=== PATIENT | female | born 1950 | race Caucasian/White ===

== ENCOUNTER 2025-05-23 12:43 | Outpatient (CLI) | payer MEDICARE ==
[~2025-05-23] VITALS: Ht 157.5 cm; Wt 77.1 kg
[2025-05-23] MEDS: PERFLUTREN PROTEIN-A MICROSPHR (Optison) 0.22 MG/ML 3ML VIAL IV ONE (13:15)
--- NOTE | 2025-05-23 18:48 | CARDIOLOGY REPORT ---
APPROVED REPORT EXAM: Comprehensive 2D, Doppler, and color-flow Echocardiogram with echo enhancement. Patient Location: OUTPATIENT Blood Pressure: 1546/61 mmHg Heart Rate: 70's bpm Rhythm: SINUS Indications MURMUR Associate Editor: NONE Previous echo: NONE Echo Enhancing Agent Indication: Endocardial border delineation Agent/Amount Used: Optison 3.0 mL Comments: LOT: [id number] EXP: 12-14-2025 2D Dimensions RVDd 4.3 cm IVSd 0.8 (0.7-1.1cm) LVDd 5.0 cm PWd 0.8 (0.7-1.1cm) IVSs 1.1 (0.8-1.2cm) LVDs 3.5 (2.5-4.0cm) PWs 1.2 (0.8-1.2cm) LVOT Diameter 1.99 (1.8-2.4cm) LVEF(%) 57.8 (>50%) FS (%) 30.6 % SV 69.6 ml M-Mode Dimensions Left Atrium(MM) 4.15 (2.5-4.0cm) Aortic Root 2.12 (2.2-3.7cm) Aortic Valve AoV Peak Joaquin. 143.5 cm/s AoV VTI 35.1 cm AO Peak GR. 8.2 mmHg AO Mean GR. 4 mmHg LVOT VTI 25.15 cm LVOT Peak Joaquin. 98.8 cm/s POOL (VMAX) 2.14 cm2 POOL (VTI) 2.23 cm2 Mitral Valve MV E Velocity 69.1 cm/s MV DECEL TIME 196 ms MV A Velocity 78.6 cm/s MV PHT 61 ms E/A Ratio 0.9 MVA (PHT) 3.58 cm2 Tricuspid Valve TR P. Velocity 222 cm/s RAP ESTIMATE 10 mmHg TR Peak Gr. 20 mmHg RVSP 30 mmHg LEFT VENTRICLE Normal LV size and wall thickness. Overall systolic function is normal. LVEF is 55-60%. RIGHT VENTRICLE Right ventricle is mild to moderately dilated. Elevated right heart pressures with an RVSP of 30 mmHg. ATRIA Left atrium is mildly dilated. AORTIC VALVE Trileaflet AV appears mildly sclerotic without stenosis. No insufficiency. MITRAL VALVE Mild MV annular calcification without stenosis. Trace regurgitation. TRICUSPID VALVE TV appears structurally normal with trace regurgitation. PULMONIC VALVE Normal PV without stenosis, mild insufficiency. GREAT VESSELS The aortic root is normal in size. PERICARDIUM Normal pericardium. No effusion. Conclusion Normal LV size and wall thickness. Overall systolic function is normal. LVEF is 55-60%. Right ventricle is mild to moderately dilated. Elevated right heart pressures with an RVSP of 30 mmHg. Left atrium is mildly dilated. Trileaflet AV appears mildly sclerotic without stenosis. No insufficiency. Mild MV annular calcification without stenosis. Trace regurgitation. TV appears structurally normal with trace regurgitation. Normal PV without stenosis, mild insufficiency. Normal pericardium. No effusion.
== END 2025-05-23 23:59 | disposition home or self-care (01) ==
LOC: CARD DIAG 12:43
PROVIDERS: ATTEND Family Medicine
DX: I08.8 Other rheumatic multiple valve diseases (principal); R01.1 Cardiac murmur, unspecified
CPT/HCPCS: C8929; Q9956; 93306